=== PATIENT | female | born 1990 | race Caucasian/White ===

== ENCOUNTER 2019-05-19 19:58 | Emergency (ER) | payer BC, SELFPAY ==
[2019-05-19 20:13] VITALS: BP 140/70; PULSE 63; RESP 18; TEMP 36.6; O2SAT 100
--- NOTE | 2019-05-19 20:37 | ED.DENTAL ---
HPI - Dental/Oral General Chief complaint: Dental/Oral Stated complaint: tooth pain History of Present Illness HPI Narrative: 28-year-old female presents with some left upper tooth pain after a cracked tooth along with the cavity, was seen by her dentist earlier today and time intervention along with some oral pain medication to go home with as a scheduled appointment in the morning, but after having Danish food the pain intensified called her dentist and was started on pen Vee K. The pain is intense radiating to her left ear with no fever or chills. MD Complaint: tooth pain Teeth map: 1. Cracked tooth along with a cavity Onset (ago): hour(s) Duration: constant Severity: severe Severity scale (1-10): 10 Relieving factors: nothing Exacerbating factors: chewing Context: history of dental caries and poor dental care Associated symptoms: gum swelling and ear pain Related Data Home Medications Medication Instructions Recorded Confirmed acetaminophen-codeine 1 tablet PO Q8H PRN 05/19/19 05/19/19 [Tylenol-Codeine #3] ibuprofen 600 mg PO TID PRN 05/19/19 05/19/19 penicillin V potassium 500 mg PO QID 05/19/19 05/19/19 Allergies Allergy/AdvReac Type Severity Reaction Status Date / Time morphine Allergy Intermediate Unknown Verified 05/19/19 20:22 Review of Systems Review of Systems: All systems reviewed & are unremarkable except as noted in HPI and below PMFSH Past Medical History Medical History Dental cavities Exam Const: General: no acute distress and alert Orientation/consciousness: patient oriented x3 HENMT: Head: normal to inspection Other: Left upper canine dental cavities with cracked tooth pain and discomfort with the surrounding gum inflammation radiating into her left ear. Eyes: Conjunctivae: conjunctivae normal Neck: Neck: normal visual inspection Chest: Chest palpation & inspection: normal inspection of the chest Resp: Effort & Inspection: normal respiratory effort Cardio: Rate: regular rate Rhythm: regular rhythm GI: Auscultation: normal bowel sounds : General: Yes no CVA tenderness Skin: General skin exam: normal color Rashes: no rashes Course Vital Signs Vital signs: Vital Signs Temperature 36.6 C 05/19/19 20:13 Pulse Rate 63 05/19/19 20:13 Respiratory Rate 18 05/19/19 20:13 Blood Pressure 140/70 05/19/19 20:13 Pulse Oximetry 100 05/19/19 20:13 Temperature 36.6 C 05/19/19 20:13 Pulse Rate 63 05/19/19 20:13 Respiratory Rate 18 05/19/19 20:13 Blood Pressure 140/70 05/19/19 20:13 Pulse Oximetry 100 05/19/19 20:13 Procedures Nerve Block Nerve Block 1: Nerve block date: 05/19/19 Local Anesthetic: lidocaine 1% Amount of anesthesia used (mL): 3 Nerve Blocks: other (Dental) Procedure Successful: Yes Patient Tolerated Procedure: well and no complications Complications: none Critical Care Time Critical Care Time Critical Care Time: No Discharge Plan Discharge Clinical Impression: Toothache, Dental cavities Patient Disposition: Home, Self-Care Condition: Stable Instructions: Antibiotic Form, Toothache (ED) Additional Instructions: Continue medication as prescribed, and keep follow-up appointment with your dentist. Prescriptions: No Action penicillin V potassium 500 mg Tablet 500 mg PO QID RF: 0 acetaminophen-codeine [Tylenol-Codeine #3] 300-30 mg Tablet 1 tablet PO Q8H PRN (Reason: Pain) RF: 0 ibuprofen 600 mg Tablet 600 mg PO TID PRN (Reason: Pain) RF: 0 Follow-up/Referrals: PHYSICIAN NOT ON STAFF,NONSTAFF [Primary Care Provider] - Stand Alone Forms: Work/School Release IP Time of Disposition: 20:44
== END 2019-05-19 21:02 | disposition home or self-care (01) ==
PROVIDERS: Emergency Provider Emergency Medicine
DX: K08.89 Other specified disorders of teeth and supporting structures (principal); K02.9 Dental caries, unspecified
CPT/HCPCS: 64999; 99282; 99283

== ENCOUNTER 2019-06-14 13:01 | Outpatient (RCR) | payer OTHER, SELFPAY ==
--- NOTE | 2019-06-14 13:38 | PTOPEVAL ---
Thank you for referring this patient to [facility]. Please review, sign, date and return this plan of care THEE. I agree with and certify that the following plan of care is medically necessary. Referring Physician Date Admitting Provider: Attending Provider: Mat Jordan MD Referring Provider: *PT Outpatient Evaluation Start: 06/14/19 13:04 Freq: Status: Active Protocol: Document 06/14/19 13:10 J (Rec: 06/14/19 13:37 [id number]) Therapy Assessment Status Assessment Status Assessment Status Evaluation Outpatient Past Medical History Past Medical History Reason Unable to Obtain see patient intake form Reproductive History Hx Section Yes Evaluation Information Problem Diagnosis back pain Onset 06/06/19 Additional Evaluation Detail oswestry = 50% Subjective Information patient reports she has been Query Text:As Reported By Patient/ having pain in the middle back Family for about a week. she reports she has pain every so often as part of her job. she reports however, last week she tried to move a bed and felt pain in her back come on later that night. she reports she has been off work since thursday of last week. she reports she has no symptoms in the legs. she reports she pain is located to her middle back just below her shoulders. Prior Level of Function Comments Additional Prior Level of Function prior to a week ago, no Comments serious issues with her back. she reports she does ahve some mild pain from time to time at work with increased lifting . Pain Assessment Timing of Pain Assessment Timing of Pain Assessment Assessment Pain Scale Pain Scale Used Numeric (1 - 10) Self Report Pain Assessment Back Reported Pain Level 5 Pain Description Pulling,Spasms,Tightness Current Pain Intensity 5 Lowest Pain Intensity 3 Greatest Pain Intensity 9 Pain Aggravating Factors Bending,Changing Position, Lifting,Supine,Other Pain Aggravating Factors Other Pain Aggravating Factors looking down to floor. Pain Score Pain Score 5: Self Report Cervical and Lumbar ROM Cervical ROM Cervical Flexion (0-60)
== END 2019-07-06 15:49 | disposition home or self-care (01) ==
LOC: CHSPT 13:01
PROVIDERS: PCP Family Medicine; Visit Provider Family Medicine
DX: M54.6 Pain in thoracic spine (principal); M54.9 Dorsalgia, unspecified; S29.012A Strain of muscle and tendon of back wall of thorax, initial encounter
CPT/HCPCS: 97014; 97110; 97140; 97161; G0283

== ENCOUNTER 2022-10-12 04:50 | Emergency (ER) | payer BC, SELFPAY ==
--- NOTE | 2022-10-12 04:55 | PC.NURSE ---
Pt declines HIV testing.
[2022-10-12 04:57] VITALS: BP 112/69; PULSE 82; RESP 20; TEMP 36.9; O2SAT 99
--- NOTE | 2022-10-12 05:08 | ED.GENADULT ---
HPI - General Adult General Chief complaint: Extremity Injury, Upper Stated complaint: R Shoulder Pain History of Present Illness HPI narrative: @ 30 wks gestation presenting with shoulder pain. Patient injured her shoulder in June this year. She has been going through rehab. She has had increased physical activity at work lately has had increased pain. the patient has taken Tylenol and cyclobenzaprine today with no relief. She has not been able to sleep all night. patient has no OBGYN complaints. Related Data Allergies Allergy/AdvReac Type Severity Reaction Status Date / Time morphine Allergy Mild Itching Verified 10/12/22 04:56 [facility] Past Medical History Medical History delivery delivered Dental cavities Nicotine dependence Surgical History Surgical History H/O: section Social History Social History Years smoked: 10 Smoking status: Current every day smoker Tobacco type: e-cigarettes/vaping Smoking end date: 03/27/15 Alcohol intake: never Substance use: never Substance use type: does not use Living arrangements: with family Additional living arrangements comments: has 2 children Occupation/Education: occupation Additional occupation/education comments: [employer] Gender identity (if verbalized by the patient): Female Exam Narrative: APPEARANCE: No apparent distress. Head: atraumatic. EYES: EOMI, NOSE: Atraumatic NECK: Trachea midline RESPIRATORY: No increased rate of breathing CARDIOVASCULAR: RRR, ABDOMINAL: Non-distended MUSCULOSKELETAl: Tenderness to palpation over the right trapezius and parathoracic muscles. Full range of motion of the right shoulder fully intact sensation. strong pulses, normal cap refill. NEURO: Alert. Moving 4/4 extremities SKIN:: Warm, dry. Normal color PSYCHIATRIC: Normal affect Course Vital Signs Vital signs: Vital Signs Temperature 98.4 F 10/12/22 04:57 Pulse Rate 82 10/12/22 04:57 Respiratory Rate 20 10/12/22 04:57 Blood Pressure 112/69 10/12/22 04:57 Pulse Oximetry 99 10/12/22 04:57 Oxygen Delivery Room Air 10/12/22 04:57 Temperature 98.4 F 10/12/22 04:57 Pulse Rate 82 10/12/22 04:57 Respiratory Rate 20 10/12/22 04:57 Blood Pressure 112/69 10/12/22 04:57 Pulse Oximetry 99 10/12/22 04:57 Oxygen Delivery Room Air 10/12/22 04:57 Medical Decision Making MDM Narrative Medical decision making narrative: -Presentation: 32-year-old woman presenting with chronic right shoulder pain. 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 -RX Vital Signs Vital Signs: Vital Signs Temperature 98.4 F 10/12/22 04:57 Pulse Rate 82 10/12/22 04:57 Respiratory Rate 20 10/12/22 04:57 Blood Pressure 112/69 10/12/22 04:57 Pulse Oximetry 99 10/12/22 04:57 Oxygen Delivery Room Air 10/12/22 04:57 Temperature 98.4 F 10/12/22 04:57 Pulse Rate 82 10/12/22 04:57 Respiratory Rate 20 10/12/22 04:57 Blood Pressure 112/69 10/12/22 04:57 Pulse Oximetry 99 10/12/22 04:57 Oxygen Delivery Room Air 10/12/22 04:57 Discharge
[2022-10-12] MEDS: oxyCODONE HCL (*CRX) 5 MG TAB IR PO (05:22)
[2022-10-12] MEDS: CYCLOBENZAPRINE HCL 5 MG TABLET PO (05:23)
[2022-10-12] MEDS: LIDOCAINE 5% PATCH 1 PATCH TRANSDERM (05:23)
== END 2022-10-12 05:54 | disposition home or self-care (01) ==
PROVIDERS: Emergency Provider Emergency Medicine; PCP Family Medicine
DX: O26.893 Other specified pregnancy related conditions, third trimester (principal); S29.012A Strain of muscle and tendon of back wall of thorax, initial encounter; O99.333 Smoking (tobacco) complicating pregnancy, third trimester; F17.290 Nicotine dependence, other tobacco product, uncomplicated; Z3A.30 30 weeks gestation of pregnancy; X58.XXXA Exposure to other specified factors, initial encounter
CPT/HCPCS: 99283; A9270

== ENCOUNTER 2022-10-15 10:06 | Outpatient (CLI) | payer OTHER, BC, SELFPAY ==
--- NOTE | ~2022-10-15 | XR_ITS ---
Cervical Spine: AP, lateral, open-mouth views Clinical History: Pain Findings: There is mild reversal of the normal cervical lordosis. No fracture identified. There is mi nimal grade 1 retrolisthesis of C5 over C6. There is moderate degenerative disc change at C5-C6. Ther e is mild degenerative disc changes C6-C7. Pre-vertebral soft tissues are unremarkable. Impression: Minimal grade 1 retrolisthesis of C5 over C6, with mild reversal of the normal cervical lordosis. Degenerative changes at the lower cervical spine, as detailed above. Reviewed, dictated and finalized at location M. Impression: Minimal grade 1 retrolisthesis of C5 over C6, with mild reversal of the normal cervical lordosis. Degenerative changes at the lower cervical spine, as detailed above.
== END 2022-10-15 10:07 | disposition home or self-care (01) ==
PROVIDERS: PCP Family Medicine; Visit Provider Family Medicine
DX: M54.12 Radiculopathy, cervical region (principal); G95.9 Disease of spinal cord, unspecified; M53.82 Other specified dorsopathies, cervical region
CPT/HCPCS: 72040

== ENCOUNTER 2022-10-30 06:17 | Outpatient (RCR) | payer OTHER, BC, SELFPAY ==
[2022-10-30 10:46] VITALS: BMI 37.5
== END 2023-01-28 23:59 | disposition home or self-care (01) ==
LOC: ANHDMC 06:17
PROVIDERS: PCP Family Medicine; Visit Provider Obstetrics & Gynecology
DX: O24.319 Unspecified pre-existing diabetes mellitus in pregnancy, unspecified trimester (principal); Z71.3 Dietary counseling and surveillance; Z71.89 Other specified counseling
CPT/HCPCS: 97802

== ENCOUNTER 2022-12-16 13:45 | Outpatient (CLI) | payer OTHER, BC, SELFPAY ==
[2022-12-16 14:23] LABS: Hemoglobin 9.3 g/dL (12.0-15.0); Mean Corpuscular Hemoglobin 23.9 pg (26-34); Mean Corpuscular Volume 79.7 fl (80-100); Mean Platelet Volume 11.3 fl (7.4-10.4); Platelet Count Result 192 k/mm3 (150-375); Red Blood Count 3.89 M/mm3 (4.2-5.4); Red Cell Distribution Width 15.8 % (11.5-14.5); White Blood Count 14.5 K/mm3 (4.5-10.0)
[2022-12-17 14:44] LABS: Rapid Plasma Reagin Non-Reactive (NonReactive)
== END 2022-12-16 13:46 | disposition home or self-care (01) ==
PROVIDERS: PCP Family Medicine; Visit Provider Obstetrics & Gynecology
DX: Z01.818 Encounter for other preprocedural examination (principal)
CPT/HCPCS: 36415; 85027; 86592; 86850; 86900; 86901

== ENCOUNTER 2022-12-17 05:36 | Inpatient (IN) | payer OTHER, BC, SELFPAY ==
--- NOTE | 2022-12-15 06:53 | PM.IMHP ---
H&P: HPI History of Present Illness Date/Time: 12/15/22 06:53 Chief Complaint: term with previous section Narrative: this is a 32-year-old multiparous patient admitted for repeat section. She is at term With early visit confirming dates PMFSH Past Medical History Medical History delivery delivered Dental cavities Nicotine dependence Surgical History Surgical History H/O: section Family History Family History Sibling Diabetes mellitus Grandparent Diabetes mellitus Social History Social History Years smoked: 10 Smoking status: Current every day smoker Tobacco type: e-cigarettes/vaping Smoking end date: 03/27/15 Alcohol intake: never Substance use: current Substance use type: does not use Living arrangements: with family Additional living arrangements comments: has 2 children Occupation/Education: occupation 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 Gender identity (if verbalized by the patient): Female Spiritual care concerns: No Meds Home Medications and Allergies Home Medications Medication Instructions Recorded Confirmed Type glyburide 5 mg tablet 5 mg PO DAILY 11/20/22 11/20/22 History Allergies Allergy/AdvReac Type Severity Reaction Status Date / Time morphine Allergy Mild Itching Verified 11/20/22 15:32 Exam Const: General: cooperative, healthy appearing and comfortable Nutritional Appearance: average body habitus Orientation/consciousness: oriented to person, oriented to place and oriented to time HENMT: Head: normal to inspection Resp: Effort & Inspection: normal respiratory effort Cardio: Rate: regular rate Rhythm: regular rhythm Heart sounds: S1 normal heart sound present and S2 normal heart sound present GI: Inspection: normal to inspection ( gravid soft uterus) : External Female Exam: normal external appearance Speculum Exam - Vagina: normal appearance of the vagina Speculum Exam - Cervix: normal appearance of the cervix Assessment and Plan Assessment and plan (1) Term : Code(s): Z34.90 - Encounter for supervision of normal , unspecified, unspecified trimester Status: Acute (2) Previous section: Code(s): Z98.891 - History of uterine scar from previous surgery Status: Acute Plan repeat low-transverse section
[2022-12-17] VITALS (43 sets, daily range): BP systolic 71–134; BP diastolic 40–72; PULSE 51–92; RESP 14–18; TEMP 36.1–37.2; O2SAT 95–100; BMI 39.6
[2022-12-17] MEDS: LACTATED RINGERS 1,000 ML 125 ML IV CONT (06:15)
--- NOTE | 2022-12-17 06:21 | WPDHPUPDATE1 ---
History and Physical Update Update Date/Time: 12/17/22 06:21 History and Physical has been reviewed, including an updated exam of the patient. There are NO changes in the patient's condition. Risks, benefits, and alternatives have been discussed and questions answered. Patient agrees to proceed with procedure.
--- NOTE | 2022-12-17 06:30 | LDADM ---
This patient, Patrizia Doe, was admitted to Labor/Delivery/Recovery 120 on 12/17/22 at 05:36. Plans for section, pain management and were discussed with patient. Patient/family oriented to hospital policies and general routines including ID bracelet, bed and alarms, visiting hours, pain management, procedures, bathroom and other care routines, personal items, smoking policy, room service/diet and guest tray routines, security routines, and visiting hours. Patient/Family are encouraged to report perceived risks to care and to ask questions if they do not understand what they are told or what they should do. See OBIX for further documentation.
--- NOTE | 2022-12-17 06:39 | WPDHPUPDATE1 ---
History and Physical Update Update Date/Time: 12/17/22 06:39 History and Physical has been reviewed, including an updated exam of the patient. There are NO changes in the patient's condition. Risks, benefits, and alternatives have been discussed and questions answered. Patient agrees to proceed with procedure. Patient desires permanent sterilization. This was reviewed throughout the and again today. Alternatives including but not exclusive of pills, patches, injections, implants were all reviewed. The permanence and irreversibility was also reviewed. Failure rate of 06/999 was also reviewed. She had all questions answered and asked to have this procedure
[2022-12-17] MEDS: FAMOTIDINE 20 MG/2 ML VIAL (07:07)
[2022-12-17] MEDS: ceFAZolin 2 GM/D5W 50 ML 2 GM/50 ML BAG IVPB (07:17)
--- NOTE | 2022-12-17 08:15 | W.PM.PROC2 ---
Procedure Note - Detailed Date of Procedure 12/17/22 Pre-op Diagnosis Repeat /sterilization Post-op Diagnosis Same Procedure Performed Repeat low-transverse section tubal ligation via modified [place] method Surgeon Jeff Smith MD Anesthesia Spinal Indications This is 32-year-old multiparous previous section term permanent sterilization Findings Female infant 8lb 9oz head and foot presentation 6 and 9 Description of Procedure Patient is prepped draped in spine position. Excellent spinal anesthetic the abdomen is special risks layers vaginal fashion size midline fashion underlying muscles sharply dissected. Parietal peritoneum with Ligaclips and was resected as well. Dome of bladder bladder blade placed bladder flap bladder blade returned low-transverse incision the head and foot were noted to be presenting this was little bit difficult so using 1 finger the foot was pressed back up into the abdomen his head was delivered WALTER position anterior posterior shoulder delivered spontaneously. Cord clamped and cut and passed off the table given Apgars 6 and 9 [id number] respectively. Placenta delivered intact manually uterus delivered and wrapped in moist towel. After assuring no membranes remained the uterus, the uterus closed continuous running 0 Vicryl from lateral edge to lateral edge. This followed by 2nd imbricating running locking 0 Vicryl from lateral edge to lateral edge. Hemostasis was assured. Right fallopian tube was grasped good knuckle tube formed free tied with 0 chromic. The peritoneum between cut in the distal and proximal ends free tied with 0 chromic and that portion passed off as portion of right fallopian tube. Hemostasis was assured in like fashion left fallopian tube midportion a good knuckle of tube free tied with 0 chromic peritoneum between pierced and the distal and proximal legs free tied with 0 chromic. The portion cut and passed off as left fallopian tube hemostasis was assured uterus returned abdomen uterine incision SPECT 1 last time hemostatic. Laps removed and accounted for fascia closed with continuous running 0 Vicryl from lateral edge to lateral edge. Irrigation subcutaneous and skin closed with glue. Loss estimated [id number]. All sponge, needle, instrument counts were correct. Mom and baby doing 5 type dictation Estimated Blood Loss 525 Drains No Packing No Pathology None sent Complications No immediate complications Condition Stable Disposition PACU
[2022-12-17] MEDS: OXYTOCIN 30 UNITS/NS 500 ML 30 UNITS/500 ML BAG 125 UNITS IV CONT (10:00)
--- NOTE | 2022-12-17 10:31 | PC.NURSE ---
Patient transferred to post room #290 via stretcher. Support person present. Oriented to unit, room, information board, rooming in, admission packet and security measures. Patient verbalizes understanding.
[2022-12-17] MEDS: KETOROLAC 30 MG/ML VIAL (*BKC) IV PUSH (11:14)
[2022-12-17] MEDS: DEXTROSE 5%/0.45% SOD CHL 1,000 ML 125 ML IV CONT (14:30)
[2022-12-17] MEDS: IBUPROFEN 600 MG TABLET PO (19:56)
[2022-12-18] MEDS: DOCUSATE SODIUM 100 MG CAPSULE PO ×3 (00:08→17:59)
[2022-12-18] MEDS: POLYSACCHARIDE IRON COMPLEX 150 MG CAPSULE PO ×3 (00:08→17:59)
[2022-12-18 00:10] VITALS: BP 97/51; PULSE 62; RESP 16; TEMP 36.6; O2SAT 99
[2022-12-18 04:53] VITALS: BP 103/60; PULSE 68; RESP 16; TEMP 36.4; O2SAT 100
[2022-12-18 05:44] LABS: Basophils Absolute Auto 0.1 K/mm3 (0.0-0.1); Basophils Percent Auto 0.3 % (0.2-1.2); Eosinophils Absolute Auto 0.1 K/mm3 (0-0.3); Eosinophils Percent Auto 0.7 % (0-4.4); Hematocrit 26.3 % (37.0-47.0); Hemoglobin 7.7 g/dL (12.0-15.0); Immature Granulocyte Absolute 0.15 K/mm3 (0.00-0.031); Lymphocytes Absolute Auto 2.68 K/mm3 (0.9-3.2); Lymphocytes Percent Auto 18.8 % (18.3-44.2); Mean Corpuscular HGB Conc 29.3 g/dl (32-36); Mean Corpuscular Hemoglobin 24.5 pg (26-34); Mean Corpuscular Volume 83.8 fl (80-100); Mean Platelet Volume 11.7 fl (7.4-10.4); Monocytes Absolute Auto 1.4 K/mm3 (0.1-0.6); Monocytes Percent Auto 9.7 % (2.6-8.5); Neutrophils Absolute Auto 9.9 K/mm3 (1.3-6.7); Neutrophils Percent Auto 69.5 % (45.5-73.1); Platelet Count Result 168 k/mm3 (150-375); Red Blood Count 3.14 M/mm3 (4.2-5.4); Red Cell Distribution Width 15.9 % (11.5-14.5); White Blood Count 14.3 K/mm3 (4.5-10.0)
[2022-12-18 06:36] LABS: Anisocytosis 1+ (NORMAL); Hypochromasia 2+ (NORMAL); Large Platelets Present; Platelet Estimate Adequate (Adequate)
[2022-12-18 06:37] LABS: Macrocytosis 1+ (NORMAL); Microcytosis 1+ (NORMAL); Schistocytes None Seen (NORMAL)
--- NOTE | 2022-12-18 06:47 | PM.DS ---
DS: Admitting Diagnosis Discharge Date 12/19/22 Admitting Diagnosis Term /previous section/sterilization DS: Discharge Diagnosis Discharge Diagnosis (1) Previous section: Code(s): Z98.891 - History of uterine scar from previous surgery Status: Acute (2) Term : Code(s): Z34.90 - Encounter for supervision of normal , unspecified, unspecified trimester Status: Acute (3) Sterilization: Code(s): Z30.2 - Encounter for sterilization Status: Acute DS: Summary Hospital Course Reason for hospitalization: Patient was admitted for repeat section bilateral tubal ligation. Hospital Course: The patient underwent repeat section and bilateral tubal ligation 07/14/2022. Her hospital course thereafter was unremarkable. She remained afebrile. She was up, voiding without difficulty, ambulating, eating regular diet, generally without complaints. Time Spent with Patient Time attestation: Total time spent providing and/or coordinating discharge services: Exam Const: General: cooperative, healthy appearing and comfortable Nutritional Appearance: obese Orientation/consciousness: oriented to person, oriented to place and oriented to time HENMT: Head: normal to inspection Resp: Effort & Inspection: normal respiratory effort Cardio: Rate: regular rate Rhythm: regular rhythm Heart sounds: S1 normal heart sound present and S2 normal heart sound present GI: Inspection: normal to inspection and incision (Wound is clean dry and intact) DS: Data Data Completed and Pending Pending studies at discharge: Pending at discharge 12/17/22 07:55 Surgical [PTH] Routine Labs on day of discharge: Labs from last 24 hours 12/18/22 04:58 WBC 14.3 H RBC 3.14 L Hgb 7.7 L Hct 26.3 L MCV 83.8 D MCH 24.5 L MCHC 29.3 L RDW 15.9 H Plt Count 168 MPV 11.7 H Immature Gran % (Auto) 1.0 H Neut % (Auto) 69.5 Lymph % (Auto) 18.8 Keith % (Auto) 9.7 H Eos % (Auto) 0.7 Baso % (Auto) 0.3 Lymph # (Auto) 2.68 Keith # (Auto) 1.4 H Eos # (Auto) 0.1 Baso # (Auto) 0.1 Abs Immat Gran (auto) 0.15 H Absolute Neuts (auto) 9.9 H Absolute Nucleated RBC 0.0 Nucleated RBC % 0.0 Platelet Estimate Adequate Large Platelets Present Hypochromasia 2+ Anisocytosis 1+ Microcytosis 1+ Macrocytosis 1+ Schistocytes None seen Discharge Plan Discharge Attending physician on discharge: Jeff Acharya Discharging Clinician: Jeff Acharya Patient Disposition: Home, Self-Care Activity: may shower, no straining and pelvic rest Diet: heart healthy Wound Care Instructions: follow printed instructions Patient Instructions: Antibiotic Form, How to Stop Smoking (DC), Cigarette Smoking and Your Health (GEN), Electronic Cigarettes and Your Health (GEN) Stand Alone Forms: General Discharge Information Follow-up/Referrals: Jeff Acharya MD [Physician] - Discharge Medications: New hydrocodone-acetaminophen 5-325 mg tablet 1 tablet PO Q4H PRN (Reason: pain) Qty: 30 0RF Continued glyburide 5 mg Tablet 5 mg PO DAILY Date of admission: 12/17/22 05:36 Primary Care Provider: Landon Varghese Admitting Provider: Jeff Acharya Attending physician on admission: Jeff Acharya Condition: Stable
--- NOTE | 2022-12-18 06:56 | P.PNOB_ITS ---
OB - PN: Subj Subjective Date/time seen: 12/18/22 06:56 Patient comments: no complaints and pain well controlled baby status: doing well OB - PN: Obj Data Labs 12/18/22 04:58 Labs: Laboratory Results - last 24 hr 12/18/22 04:58 WBC 14.3 H RBC 3.14 L Hgb 7.7 L Hct 26.3 L MCV 83.8 D MCH 24.5 L MCHC 29.3 L RDW 15.9 H Plt Count 168 MPV 11.7 H Immature Gran % (Auto) 1.0 H Neut % (Auto) 69.5 Lymph % (Auto) 18.8 [place] % (Auto) 9.7 H Eos % (Auto) 0.7 Baso % (Auto) 0.3 Lymph # (Auto) 2.68 [place] # (Auto) 1.4 H Eos # (Auto) 0.1 Baso # (Auto) 0.1 Abs Immat Gran (auto) 0.15 H Absolute Neuts (auto) 9.9 H Absolute Nucleated RBC 0.0 Nucleated RBC % 0.0 Platelet Estimate Adequate Large Platelets Present Hypochromasia 2+ Anisocytosis 1+ Microcytosis 1+ Macrocytosis 1+ Schistocytes None seen OB - PN A/P Plan day: 1 Plan: routine care Time Spent With Patient Time: Total time spent is greater than 50% in coordination of care (as documented) at patient's floor/unit and/or counseling patient: Time with patient: less than 15 minutes Exam Const: General: cooperative, healthy appearing and comfortable Orientation/consciousness: oriented to person, oriented to place and oriented to time Resp: Effort & Inspection: normal respiratory effort Cardio: Rate: regular rate Rhythm: regular rhythm Heart sounds: S1 normal heart sound present and S2 normal heart sound present GI: Inspection: normal to inspection and incision (Wound is clean dry and in tact)
[2022-12-18] MEDS: SIMETHICONE 80 MG TAB.CHEW PO (06:59)
[2022-12-18] MEDS: IBUPROFEN 600 MG TABLET PO ×2 (06:59→13:10)
[2022-12-18] MEDS: LIDOCAINE 5% PATCH 1 PATCH TRANSDERM (07:00)
[2022-12-18] MEDS: MULTIVIT/MIN/PREN/FOL AC/IRON TABLET 1 TAB PO (08:35)
[2022-12-18] MEDS: HYDROcodone/acetaminophen (*CRX) 5-325 MG TABLET 1 TAB PO ×2 (08:36→17:59)
[2022-12-18 08:45] VITALS: BP 98/63; PULSE 61; RESP 18; TEMP 36.2; O2SAT 100
--- NOTE | 2022-12-18 13:28 | WPDANLDPN2 ---
Anes-Prog Note L&D Date/Time: 12/18/22 13:28 Comfortable throughout: labor and delivery Neuraxial method: epidural Epidural/Spinal procedure site: clean & non-tender Neuro status: Neuro function grossly intact. Cardiovascular status: normal Respiratory status: normal Airway patency: baseline Mental status: baseline Post-Op hydration status: normal Vital Signs: Last Vital Signs Temp 36.2 C L 12/18/22 08:45 Pulse 61 12/18/22 08:45 Resp 18 12/18/22 08:45 BP 98/63 L 12/18/22 08:45 Pulse Ox 100 12/18/22 08:45 O2 Del Method Room Air 12/17/22 08:24 Pain score (VAS): 3/10 I/O: Intake & Output 12/17/22 12/18/22 12/18/22 23:59 07:59 15:59 Intake Total 400 1980 Output Total 1175 975 200 Balance -775 1005 -200 Post-procedural complaints: none Patient feedback: Patient satisfied with anesthetic care.
--- NOTE | 2022-12-18 13:28 | WPDANLDNPN2 ---
Anes-Prog Note L&D-Neuraxial Date/Time: 12/18/22 13:28 Neuraxial medications: intrathecal PF morphine Opiod-related complaints: none Patient feedback: Patient satisfied with post-operative pain management.
--- NOTE | 2022-12-18 14:48 | PC.NURSE ---
[id number] Introductions were made, then consulted with patient to assess needs related to . Mother led the conversation with her?plans to feed?her infant, the?experience so far and state there is pain at first but not bad. Mother is encouraged to call for a latch assistance with the next . Resources provided for inpatient and outpatient services with the feeding sheet, mom/baby guide and name written on the white board. Mother voiced understanding of information and will call if there is a request for assistance. Primary RN is present.
--- NOTE | 2022-12-18 15:52 | PC.NURSE ---
1545 - Purposefully rounded to assess needs related to mother stated she had small blisters forming on the left breast. Mother is demonstrating with infants body facing the ceiling, cradle positioning with dangling the body. RN suggested moving infant close to mother with belly to belly, chin buried into the breast with a big, wide, open gape to protect her nipples. Mother is comfortable letting baby do what she wants to do denies pain other than the discomfort with initiating for the first few days. RN visualized infant demonstrating good rocking jaw motion and swallowing. Mother acknowledges education, recognizes the swallowing and is confident. Reported to the Primary RN.
[2022-12-18 20:08] VITALS: BP 118/76; PULSE 94; RESP 16; TEMP 36.9; O2SAT 100
[2022-12-19] MEDS: HYDROcodone/acetaminophen (*CRX) 5-325 MG TABLET 1 TAB PO ×3 (00:15→08:59)
[2022-12-19] MEDS: IBUPROFEN 600 MG TABLET PO ×2 (02:27→08:59)
--- NOTE | 2022-12-19 06:48 | PM.OBPNVD ---
OB - PN: Subj Subjective Date/time seen: 12/19/22 06:48 Patient comments: no complaints and pain well controlled baby status: doing well and nursing well OB - PN: Obj Data Labs 12/18/22 04:58 OB - PN A/P Plan day: 2 Plan: routine care, discharge home and follow up 6 weeks (4) Time Spent With Patient Time: Total time spent is greater than 50% in coordination of care (as documented) at patient's floor/unit and/or counseling patient: Time with patient: less than 15 minutes Exam Const: General: cooperative, healthy appearing and comfortable Nutritional Appearance: average body habitus Orientation/consciousness: oriented to person, oriented to place and oriented to time HENMT: Head: normal to inspection Resp: Effort & Inspection: normal respiratory effort Cardio: Rate: regular rate Rhythm: regular rhythm Heart sounds: S1 normal heart sound present and S2 normal heart sound present GI: Inspection: normal to inspection
[2022-12-19 07:30] VITALS: BP 108/60; PULSE 64; RESP 18; TEMP 36.6; O2SAT 100
--- NOTE | 2022-12-19 08:30 | PC.NURSE ---
0830 Mother led the conversation with her experience and plan to feed her so far and her ability to independently latch optimally without discomfort. Reminded parents to use good handwashing technique to prevent infection. Mother is feeding appropriately for growth of and understands stimulating infant to eat if needed. has had appropriate feedings in the last 24 hours meets the outcomes for weight, output and jaundice at this time. Mother states she is confident to continue effectively her at home, when to call for assistance and denies any additional assistance or education at this time. Reinforced understanding of milk production, transition of milk, signs of adequate intake, transition of stool, prevention/relief of engorgement, plugged ducts, mastitis, responsive watching for feeding cues, the different methods of stimulating to breastfeed 2-3 hours after the start of the last feeding and when to call a provider using the resource of the mom and baby guide/[facility] website. Mother voiced understanding of the education shared. Reported to the primary RN.
[2022-12-19] MEDS: POLYSACCHARIDE IRON COMPLEX 150 MG CAPSULE PO (08:57)
[2022-12-19] MEDS: MULTIVIT/MIN/PREN/FOL AC/IRON TABLET 1 TAB PO (08:57)
[2022-12-19] MEDS: TETANUS,DIPHTHERIA,AC PERTUSSIS ADULT (0.5 ML) BOOSTRIX IM (08:58)
[2022-12-19] MEDS: DOCUSATE SODIUM 100 MG CAPSULE PO (08:58)
[2022-12-22 10:51] VITALS: BP 124/79; PULSE 54; RESP 16; TEMP 37.2; O2SAT 99
== END 2022-12-19 11:35 | disposition home or self-care (01) | DRG 785 ==
LOC: ANHLDR 06:23 → ANHOB2 10:49
PROVIDERS: Admitting Provider Obstetrics & Gynecology; PCP Family Medicine; Visit Provider Obstetrics & Gynecology
PROC: 10D00Z1 Extraction of Products of Conception, Low, Open Approach (ICD-10-PCS; CPT 59514; principal; 2022-12-17 07:30)
DX: O34.219 Maternal care for unspecified type scar from previous cesarean delivery (principal); Z30.2 Encounter for sterilization; O24.429 Gestational diabetes mellitus in childbirth, unspecified control; O99.334 Smoking (tobacco) complicating childbirth; F17.290 Nicotine dependence, other tobacco product, uncomplicated; Z3A.39 39 weeks gestation of pregnancy; Z37.0 Single live birth
CPT/HCPCS: 36415; 85025; 88302; 90715; A9270; J0690; J1100; J1170; J1200; J1885; J2274; J2371; J2405; J2590; J7120

== ENCOUNTER 2023-10-15 08:28 | Outpatient (CLI) | payer OTHER, BC, SELFPAY ==
--- NOTE | ~2023-10-15 | XR_ITS ---
LUMBAR SPINE INDICATION: Numbness for 4 weeks. TECHNIQUE: 3 views lumbar spine COMPARISON: None FINDINGS: No fracture, subluxation or dislocation. No evidence for spondylolysis or spondylolisthesi s. There is disc narrowing at L5-S1. No evidence for spondylolisthesis.. Moderate colonic fecal loadi ng. IMPRESSION: 1: Mild lumbar spondylosis.. Reviewed, dictated and finalized at location B.
== END 2023-10-15 08:29 | disposition home or self-care (01) ==
PROVIDERS: PCP Family Medicine; Visit Provider Family Medicine
DX: M54.16 Radiculopathy, lumbar region (principal); M43.06 Spondylolysis, lumbar region
CPT/HCPCS: 72100

== ENCOUNTER 2023-12-12 06:46 | Outpatient (CLI) | payer OTHER, BC, SELFPAY ==
--- NOTE | ~2023-12-12 | MR_ITS ---
EXAMINATION: MR lumbar spine wo con DATE: 12/12/2023 08:19 INDICATION: Low back pain TECHNIQUE: Magnetic resonance imaging (MRI) of the lumbar spine was performed without intravenous con trast. Sequences included sagittal T2-weighted FSE, sagittal T2-weighted FS FSE, sagittal T1-weighted FSE, and axial T2-weighted FSE. COMPARISON: None FINDINGS: Alignment is normal. Vertebral body heights are normal. Normal marrow signal. Mild disc height loss at L4-L5 and L5-S1. The conus medullaris terminates at L1. There is normal signal in the caudal spina l cord. Paravertebral soft tissues are unremarkable. The following disc levels are specifically discu ssed: T12-L1: The disc does not extend beyond the endplate margin. There is mild bilateral facet joint oste oarthritis. There is no neural foraminal stenosis. There is no central canal stenosis. L1-L2: The disc does not extend beyond the endplate margin. There is no facet joint osteoarthritis. T here is no neural foraminal stenosis. There is no central canal stenosis. L2-L3: The disc does not extend beyond the endplate margin. There is no facet joint osteoarthritis. T here is no neural foraminal stenosis. There is no central canal stenosis. L3-L4: The disc does not extend beyond the endplate margin. There is mild bilateral facet joint osteo arthritis. There is no neural foraminal stenosis. There is no central canal stenosis. L4-L5: Disc is mildly bulging. There is mild bilateral facet joint osteoarthritis. There is mild left neural foraminal stenosis. There is mild central canal stenosis. L5-S1: Disc is mildly bulging with superimposed left foraminal zone annular fissure and disc extrusio n with disc material extending couple millimeter cephalad to the level of the inferior endplate of L5 . There is mild bilateral facet joint osteoarthritis. There is mild right and moderate left neural fo raminal stenosis. There is no central canal stenosis. IMPRESSION: 1. Mild lower lumbar spondylosis most notable for left foraminal zone annular fissure and disc extrus ion at L5-S1 contributing to moderate neural foraminal spurring at this level Reviewed, dictated and finalized at location A. IMPRESSION: 1. Mild lower lumbar spondylosis most notable for left foraminal zone annular f issure and disc extrusion at L5-S1 contributing to moderate neural foraminal sp urring at this level
== END 2023-12-12 06:47 | disposition home or self-care (01) ==
LOC: CHSIMG 06:51
PROVIDERS: PCP Family Medicine; Visit Provider Family Medicine
DX: M54.16 Radiculopathy, lumbar region (principal); M43.06 Spondylolysis, lumbar region
CPT/HCPCS: 72148

== ENCOUNTER 2023-12-12 16:16 | Emergency (ER) | payer OTHER, BC, SELFPAY ==
[2023-12-12 16:17] VITALS: BP 132/94; PULSE 80; RESP 16; TEMP 37; O2SAT 100
[2023-12-12 16:32] LABS: Add Urine Microscopic? YES; Bilirubin Urine Negative (Negative); Blood Urine 3+ (Negative); Color Urine Yellow (Yellow); Glucose Urine UA Negative (Negative); Ketones Urine Trace (Negative); Leukocyte Esterase Ur Negative LEU/UL (Negative); Nitrate Urine Negative (Negative); Protein Urine 2+ (Negative); Specific Grav Ur >= 1.030 (1.010-1.020); Urobilinogen Urine 0.2 mg/dL (0.2-1.0)
[2023-12-12 16:50] LABS: Appearance Urine Cloudy (Clear); Mucus Urine Heavy /lpf; RBC Urine >75 /hpf (0-2); Squamous Epithelial Cell Urine Few /hpf (Few)
--- NOTE | 2023-12-12 17:36 | ED.GENADULT ---
HPI - General Adult General Chief complaint: Urogenital-Female Stated complaint: UTI symptoms. Time Seen by Provider: 12/12/23 16:21 History of Present Illness HPI narrative: Patient is a 33-year-old female with history of complex low back pain with lumbar compression ( currently receiving evaluation and treatment for this) who is last early every 1 year ago who presents with symptoms of urinary frequency, urgency, urge incontinence x1 day consistent with her previous episodes of acute cystitis. She has no other acute complaints or concerns at this time. Her back pain is at baseline and chronic. Remainder of ROS was negative for fever, chills, nausea, vomiting, headache, vision changes, chest pain, sob, abdominal pain, or changes in diet, or bowel habits. Related Data Allergies Allergy/AdvReac Type Severity Reaction Status Date / Time No Known Allergies Allergy Verified 12/12/23 16:17 PMFSH Past Medical History Medical History delivery delivered Dental cavities Nicotine dependence Surgical History Surgical History H/O: section Family History Family History Sibling Diabetes mellitus Grandparent Diabetes mellitus Social History Social History Years smoked: 10 Smoking status: Current every day smoker Tobacco type: e-cigarettes/vaping Smoking end date: 03/27/15 Alcohol intake: never Substance use: current Substance use type: does not use Lack of Transportation: No Lack of Food: Never True Current Housing: I Have Housing Concerned About Future Housing: No Difficulty Paying Gas/Electric Bills: No Difficulty Paying for Meds: No Currently Unemployed: No Education: Trade/Vocational Certificate Difficulty w/ Childcare or Family Care: No Living arrangements: with family Additional living arrangements comments: has 2 children Occupation/Education: occupation 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 Well appearing, well nourished, nontoxic, NAD. HEENT: No rhinorrhea noted, mucous membranes moist. No scleral icterus or conjunctival injection. CV: Normal rate, regular rhythm, S1S2 no M/G/R. 2+ distal pulses all extremities. No peripheral edema noted. PULM: Non-labored respiration. Clear to auscultation bilaterally. No wheezes, rales, rhonchi. GI: Mild suprapubic tenderness. Abdomen otherwise soft, non -tender to palpation. No rigidity, distention or guarding.? NEURO: Normal speech. No lateralizing or focal deficits noted. Course Vital Signs Vital signs: Vital Signs Temperature 37.0 C 12/12/23 16:17 Pulse Rate 80 12/12/23 16:17 Respiratory Rate 16 12/12/23 16:17 Blood Pressure 132/94 H 12/12/23 16:17 Pulse Oximetry 100 12/12/23 16:17 Temperature 37.0 C 12/12/23 16:17 Pulse Rate 80 12/12/23 16:17 Respiratory Rate 16 12/12/23 16:17 Blood Pressure 132/94 H 12/12/23 16:17 Pulse Oximetry 100 12/12/23 16:17 Medical Decision Making MDM Narrative Medical decision making narrative: Patient was placed in Room #:?7 Independent Historian: None External Source Review: none Differential diagnosis includes but not limited to:? urinary tract infection (cystitis), kidney stone Medications were Reviewed: home meds Independently Interpreted by me: UA Medications, treatment, ED course: History highly suggestive of a simple cystitis in this 33-year-old woman without fever chills no flank pain or CVA tenderness. States that this feels like previous UTIs. UA is positive for mucus, protein, and blood. this may represent a kidney stone vers
[2023-12-12] MEDS: CEPHALEXIN 500 MG CAPSULE PO (17:57)
[2023-12-12 17:58] VITALS: BP 113/84; PULSE 70; RESP 16; TEMP 36.9; O2SAT 100
[2023-12-16 08:20] LABS: Chlamydia trachomatis NOT DETECTED (NOT DETECTE); Neisseria gonorrhoeae PCR NOT DETECTED (NOT DETECTE)
== END 2023-12-12 17:58 | disposition home or self-care (01) ==
PROVIDERS: Emergency Provider Family Medicine; PCP Family Medicine
DX: N39.0 Urinary tract infection, site not specified (principal); F17.290 Nicotine dependence, other tobacco product, uncomplicated
CPT/HCPCS: 81001; 87491; 87591; 99283; A9270

== ENCOUNTER 2024-01-09 08:32 | Outpatient (CLI) | payer OTHER, BC, SELFPAY ==
--- NOTE | ~2024-01-09 | MR_ITS ---
MR cervical spine wo/w con Ordering provider: Leonie Waddell MD History: . Myelopathy . Comparison: None. Technique: MRI cervical spine with and without contrast enhancement. FINDINGS: CERVICAL SPINAL CORD/CRANIAL CERVICAL JUNCTION: T2 bright signal is seen at the level of C6-C7 sugges tive of myelomalacia with edema Normal in signal and caliber. No abnormal enhancement. CERVICAL VERTEBRAL BODIES: Normal height and alignment. Normal marrow signal. No abnormal marrow enha ncement. DISK SPACES: Narrowing of the disc C6-C7 C2-C3: No stenosis. C3-C4: No stenosis. C4-C5: No stenosis. C5-C6: Moderate spinal canal stenosis secondary to broad based disc bulge. Central Disc protrusion w ith mild indentation of cord. C6-C7: Moderate spinal canal stenosis secondary to broad based disc bulge. Disc extrusion with inden tation of the anteriorly causing cord compression. C7-T1: No stenosis. VISUALIZED PARASPINOUS SOFT TISSUES: Normal. No abnormal enhancement. IMPRESSION: 1. Mild to moderate spinal canal stenosis at the level of C5-C6 with disc protrusion. 2. Severe spinal canal stenosis with myelomalacia and cord compression with bilateral narrowing of t he foramina at the level of C6-C7. No definite enhancing lesions seen the physician assistant pressman of Dr. Martínez was notified with the result of the patient at the time dictation at 11: 04 AM on January 11, 2024 Reviewed, dictated and finalized at location A. IMPRESSION: 1. Mild to moderate spinal canal stenosis at the level of C5-C6 with disc prot rusion. 2. Severe spinal canal stenosis with myelomalacia and cord compression with bi lateral narrowing of the foramina at the level of C6-C7. No definite enhancing lesions seen the physician assistant pressman of Dr. Martínez was no tified with the result of the patient at the time dictation at 11: 04 AM on Dec
--- NOTE | ~2024-01-09 | MR_ITS ---
EXAMINATION: MR thoracic spine wo/w con DATE: 01/11/2024 10:38 INDICATION: Several months of numbness from the waist down TECHNIQUE: Magnetic resonance imaging (MRI) of the thoracic spine was performed without and with 15 m L Multihance intravenous contrast. Sagittal localizer T1-weighted FSE of the cervicothoracic spine wa s obtained. Sequences included sagittal T2-weighted FSE, sagittal T2-weighted FS FSE, sagittal T1-marizol ghted FSE and axial T1-weighted SE. Postcontrast sequences included axial T2-weighted FSE, sagittal T 1-weighted FS FSE and axial T1-weighted FS SE. COMPARISON: None FINDINGS: 7 degrees thoracic dextrocurvature. Sagittal alignment is normal. Vertebral body heights are normal. Normal marrow signal.Disc desiccation and mild disc height loss with annular fissures and left parace ntral disc extrusions at T7-T8 and T8-T9. This results in mild central canal stenosis with flattening of the left ventral surface of the cord at both levels. Remaining disc heights and signal are normal . There are small left paracentral disc protrusions with minimal central canal stenosis at T4-T5 and T5-T6. Remaining discs are normal and do not extend beyond the endplate margins with no other central canal stenosis. There is moderate to severe spondylosis in the lower cervical spine with severe cent ral canal stenosis and increased cord signal consistent with myelomalacia at the lower cervical cord which is best appreciated on the cervical spine MR which is been dictated separately. There is normal thoracic spinal cord signal. The conus terminates at L1. No abnormally enhancing lesions identified. Multilevel mild thoracic facet osteoarthritis. No neural foraminal stenosis. IMPRESSION: 1. Mild thoracic spondylosis most prominent at T7-T8 and T8-T9 where there are annular fissures and l eft paracentral disc extrusions resulting in mild central canal stenosis. Reviewed, dictated and finalized at location B. IMPRESSION: 1. Mild thoracic spondylosis most prominent at T7-T8 and T8-T9 where there are annular fissures and left paracentral disc extrusions resulting in mild central canal stenosis.
== END 2024-01-09 08:33 | disposition home or self-care (01) ==
LOC: CHSIMG 08:33
PROVIDERS: PCP Family Medicine; Visit Provider Neurological Surgery
DX: G95.9 Disease of spinal cord, unspecified (principal); M43.04 Spondylolysis, thoracic region; M48.04 Spinal stenosis, thoracic region; M48.02 Spinal stenosis, cervical region
CPT/HCPCS: 72156; 72157; A9577